=== PATIENT | male | born 1955 | race Caucasian/White ===

== ENCOUNTER 2021-05-29 11:38 | Outpatient (CLI) | payer MEDICARE ==
[2021-05-30 00:17] LABS: SARS-CoV-2 PCR by NAA Not Detected (NotDetected)
== END 2021-05-29 11:39 | disposition home or self-care (01) ==
LOC: CSHLAB 11:38
PROVIDERS: ATTEND Neurological Surgery
DX: Z20.822 Contact with and (suspected) exposure to COVID-19 (principal)
CPT/HCPCS: U0003; U0005

== ENCOUNTER 2021-09-21 12:23 | Outpatient (CLI) | payer MEDICARE | END 2021-09-21 12:24 | disposition home or self-care (01) | LOC: CSHCP 12:23 | PROVIDERS: ATTEND Internal Medicine Critical Care Medicine | DX: J44.9 Chronic obstructive pulmonary disease, unspecified (principal) | CPT/HCPCS: 94060; 94726; 94729; 94760 ==